=== PATIENT | female | born 1940 | race Caucasian/White ===

== ENCOUNTER 2017-03-27 06:50 | Inpatient (IN) | payer OTHER ==
[~2017-03-27] VITALS: Ht 154.9 cm; Wt 69.8 kg
[2017-03-27] VITALS (9 sets, daily range): BP systolic 100–201; BP diastolic 47–102
--- NOTE | 2017-03-27 07:14 | NUR ---
REPORT GIVEN TO AND CARE ENDORSED TO RAH GEORGE.
--- NOTE | 2017-03-27 07:30 | NUR ---
PATIENT PRESENTS TO ED WITH C/O ABDOMINAL PAIN. PAIN LEVEL OF 8/10. PATIENT HAS NAUSEA BUT NO VOMITING UPON ASSESSMENT. BOWEL SOUNDS HEARD ON ALL 4 QUADRANTS. PATIENT DENIES TRAUMA.
--- NOTE | 2017-03-27 07:42 | NUR ---
XRAY IN ROOM
[2017-03-27 07:49] LABS: BASOPHIL % 0.1 % (0-2)
[2017-03-27 07:52] LABS: PLATELET COUNT 430 x10^3mcL (130-400); RED CELL DISTRIBUTION WIDTH 17.2 % (11.5-14.5)
[2017-03-27 08:03] LABS: ovalocyte/elliptocyte 1+; rbc morphology (normal/abnorm) ABNORMAL (NORMAL)
[2017-03-27 08:09] LABS: T3 TOTAL 0.91 ng/mL
[2017-03-27 08:13] LABS: CALCIUM 9.2 mg/dL (8.5-10.1); CARBON DIOXIDE 24.7 mmol/L (21-32); CHLORIDE SERUM 96 mmol/L (98-107); CREATININE SERUM 0.9 mg/dL (0.6-1.0); GLUCOSE SERUM 387 mg/dL (74-106); POTASSIUM SERUM 3.7 mmol/L (3.5-5.1); SODIUM SERUM 133 mmol/L (136-145)
[2017-03-27 08:15] LABS: FREE T4 1.17 ng/dL (0.76-1.46); FREE THYROXINE INDEX 3.3 ug/dL (1.4-4.5); T4(THYROXINE) 9.3 ug/dL (4.7-13.3)
[2017-03-27 08:19] LABS: CK-MB 0.8 ng/mL (0-3.6)
[2017-03-27 08:25] LABS: ALBUMIN 3.9 g/dL (3.4-5.0); ALKALINE PHOSPHATASE 121 U/L (46-116); ALT/SGPT 19 U/L (14-59); AST/SGOT 16 U/L (15-37); BILIRUBIN TOTAL 0.53 mg/dL (0.20-1.00); TOTAL PROTEIN, SERUM 8.3 g/dL (6.4-8.2)
[2017-03-27 08:26] LABS: C REACTIVE PROTEIN < 0.2 mg/dL (<=0.9)
[2017-03-27 08:34] LABS: ERYTHROCYTE SED RATE 39 mm/hr (0-30)
--- NOTE | 2017-03-27 09:25 | NUR ---
BP 171/79. DR KHANNA AWARE AND OK TO CONTINUE WITH SECOND SALINE BOLUS
[2017-03-27] MEDS ORDERED: LANTUS SOLOS100 U/M1 SQ (10:18)
[2017-03-27] MEDS ORDERED: LISINOPRIL2.5 MG PO (10:19)
[2017-03-27] MEDS ORDERED: JANUVIA100 M1 PO (10:19)
--- NOTE | 2017-03-27 11:03 | NUR ---
REPORT GIVEN TO IRENE OVIEDO/RN.
--- NOTE | 2017-03-27 11:17 | NUR ---
PATIENT RECEIVED AT THIS TIME VIA [employer]. ACCOMPANIED BY NURSE AND DAUGHTER. AMBULATES WITH MINIMAL ASSISTANCE TO BED. PLACED ON TELE #41, HR 104. CERVICAL COLLAR IN PLACE FOR PAST SURGERY TO CERVICAL SPINE FOR FUSION OF C3-C5. IV TO RAC SALINE LOCKED, PLACED SCD'S, PLACED K PAD FOR ABDOMINAL PAIN TO LLQ. PATIENT STATES SHE WAS VOMITING ALL NIGHT WITH NO BLOOD IN EMESIS, BM FORMED WITH NO BLOOD. ALL SAFETY MEASURES IN PLACE AND REVIEWED, CALL LIGHT WITHIN REACH, WILL CONTINUE TO MONITOR.
[2017-03-27 12:57] LABS: CHOLESTEROL/HDL RATIO 3.4; MAGNESIUM 2.1 mg/dL (1.8-2.4); PHOSPHOROUS 3.8 mg/dL (2.5-4.9)
--- NOTE | 2017-03-27 13:09 | NUR ---
DR ACOSTA IN TO ASSESS PATIENT, PATIENT NAUSEOUS, DRY HEAVING. MEDICATED PRN ZOFRAN (SEE EMAR). ALL SAFETY MEASURES IN PLACE, WILL CONTINUE TO MONITOR.
--- NOTE | 2017-03-27 14:28 | NUR ---
DR ACOSTA IN TO ASSESS PATIENT AT THIS TIME. INFORMED BP 139/65, HR 102. PER DR ACOSTA CHECK BLOOD SUGAR PRIOR TO LEVEMIR (SEE EMAR). REGLAN GIVEN FOR CONTINUED NAUSEA, BLOOD TINGED EMESIS EXPELLED. DO ACOSTA VISUALLY INSPECTED. WILL CONTINUE TO MONITOR.
--- NOTE | 2017-03-27 15:29 | NUR ---
PATIENT RESTING, US TECH AT BEDSIDE.
--- NOTE | 2017-03-27 16:15 | NUR ---
DR ACOSTA MADE AWARE OF BP 105/54, PER MD WILL RETAKE BP, PATIENT ASYMPTOMATIC AND STATES SHE FEELS MUCH BETTER NOW. WILL CONTINUE TO MONITOR.
[2017-03-27 16:38] LABS: microscopic required? NO
[2017-03-27 16:57] LABS: urine erythrocyte NEGATIVE (NEGATIVE)
[2017-03-27 17:06] LABS: AMPHETAMINE QUAL UR NONE DETECTED (NEG <=1000)
--- NOTE | 2017-03-27 17:58 | NUR ---
DR ACOSTA MADE AWARE OF LACTIC ACID 3.2, PATIENT STILL NAUSEOUS, DRY HEAVING, ZOFRAN GIVEN (SEE EMAR), BP AT 1645 100/47, BP AT 1724 165/81. STATED HE WILL ENTER ORDER FOR NORVASC. WILL CONTINUE TO MONITOR.
--- NOTE | 2017-03-27 19:38 | NUR ---
BEDSIDE REPORT GIVEN TO NOC SHIFT NURSE AT THIS TIME, WILL ENDORSE CARE.
--- NOTE | 2017-03-27 19:50 | NUR ---
RECEIVED REPORT FROM DAY SHIFT RN. PT RESTING IN SEMIFOWLER'S POSITION. CERVICAL COLLAR AT BEDSIDE. PT STATES WANTED THEM OFF FOR NOW. NO SOB ON ROOM AIR. C/O NAUSEA, WILL MEDICATE PER ORDER. KPAD FOR ABD PAIN. IV ON RAC, NS INFUSING. SAFETY MEASURES IN PLACE. BED IN LOWEST POSITION. SIDE RAILS UP X2. DEMONSTRATED HOW TO USE THE CALL LIGHT FOR ASSISTANCE. CALL LIGHT WITHIN REACH.
[2017-03-28 04:44] VITALS: BP 96/48
[2017-03-28 06:22] LABS: CALCIUM 9.3 mg/dL (8.5-10.1); CARBON DIOXIDE 27.1 mmol/L (21-32); CHLORIDE SERUM 102 mmol/L (98-107); CREATININE SERUM 1.3 mg/dL (0.6-1.0); GLUCOSE SERUM 97 mg/dL (74-106); POTASSIUM SERUM 4.5 mmol/L (3.5-5.1); SODIUM SERUM 140 mmol/L (136-145)
[2017-03-28 06:32] LABS: BASOPHIL % 0.3 % (0-2)
[2017-03-28 06:40] LABS: PLATELET COUNT 423 x10^3mcL (130-400); RED CELL DISTRIBUTION WIDTH 17.3 % (11.5-14.5)
--- NOTE | 2017-03-28 06:42 | NUR ---
PT SLEPT AT LONG INTERVALS THROUGHOUT SHIFT. C/O NAUSEA, MEDICATED WITH REGLAN X1 AND ABD PAIN, MEDICATED WITH NORCO X1 LAST NIGHT. DENIES ANY N/V, ABD PAIN THIS MORNING. SAFETY MEASURES MAINTAINED. CALL LIGHT WITHIN REACH. WILL ENDORSE CONTINUITY OF CARE TO ONCOMING RN.
--- NOTE | 2017-03-28 07:39 | NUR ---
RECEIVED PT FROM NIGHT NURSE IN NO ACUTE DISTRESS. RESPIRATIONS EVEN AND UNLABORED ON RA. PT ASLEEP IN BED. K PAD IN PLACE TO ABDOMEN. D5 1/2 NS INFUSING AT 25ML/HR AT BEDSIDE. BED IN LOWEST POSITION. CALL LIGHT WITHIN REACH. WILL CONTINUE TO MONITOR.
[2017-03-28 09:38] VITALS: BP 126/59
--- NOTE | 2017-03-28 13:08 | NUR ---
PT RESTING IN BED IN NO ACUTE DISTRESS. RESPIRATIONS EVEN AND UNLABORED ON RA. AAOX4. TORADOL GIVEN FOR PAIN. KPAD IN PLACE TO ABD, SKIN INTACT. IVF INFUSING AT BEDSIDE. FAMILY AT BEDSIDE. BED IN LOWEST POSITION. CALL LIGHT WITHIN REACH. WILL CONTINUE TO MONITOR.
[2017-03-28 14:08] VITALS: BP 173/87
--- NOTE | 2017-03-28 14:35 | NUR ---
PT TAKEN DOWN TO GI LAB
[2017-03-28 16:17] VITALS: BP 110/57
--- NOTE | 2017-03-28 16:17 | NUR ---
PT RETURNED FROM GI LAB IN NO ACUTE DISTRESS. RESPIRATIONS EVEN AND UNLABORED ON RA. AAOX4. DENIES PAIN AT THIS TIME. BP 110/57 (70), HR 96, TEMP 98.1, SPO2 95%, RR 18. IVF INFUSING AT BEDSIDE. BED IN LOWEST POSITION. CALL LIGHT WITHIN REACH. WILL CONTINUE TO MONITOR.
--- NOTE | 2017-03-28 18:51 | NUR ---
PT ASLEEP IN BED IN NO ACUTE DISTRESS. RESPIRATIONS EVEN AND UNLABORED ON RA. IVF INFUSING AT BEDSIDE. BED IN LOWEST POSITION. CALL LIGHT WITHIN REACH. WILL ENDORSE CARE TO ONCOMING SHIFT.
--- NOTE | 2017-03-28 19:30 | NUR ---
RECEIVED PATIENT FROM AM RN. PATIENT QUIETLY RESTING IN BED. K-PAD TO BACK. TELE 41 SR. A/OX4 ABLE TO VERBALIZE NEEDS. DENIES ANY N/V, NO ABD PAIN. IVF INFUSING TO RAC AT 40ML/HR D5NS. CALL LIGHT WITHIN REACH.
--- NOTE | 2017-03-29 01:29 | NUR ---
PATIENT QUIETLY SLEEPING AT THIS TIME. EASILY AWAKEABLE. CONTINUES TO DENY ANY NAUSEA OR VOMITING. NO ABD PAIN VERBALIZED. CALL LIGHT WITHIN REACH.
--- NOTE | 2017-03-29 05:05 | NUR ---
PATIENT VERBALIZED PAIN TO STOMACH. ADMINISTERED PAIN MEDICATION.
[2017-03-29 05:27] VITALS: BP 155/75
--- NOTE | 2017-03-29 05:39 | NUR ---
PATIENT NOTED TO BE IN SEVERE PAIN. FACIAL GRIMACING AND CRYING NOTED. ADMINISTERED PAIN MEDICATION AND COACHED PATIENT TO TAKE DEEP BREATHS TO ASSIST WITH PAIN MANAGEMENT.
--- NOTE | 2017-03-29 06:13 | NUR ---
DR. STEWART IN TO SEE PATIENT. DR. STEWART AWARE THAT PATIENT IS HAVING SEVERE ABD PAIN. PER DR. STEWART, WILL PUT IN ORDERS FOR POSSIBLE DILAUDID.
[2017-03-29 06:14] LABS: BASOPHIL % 0.4 % (0-2); PLATELET COUNT 393 x10^3mcL (130-400)
[2017-03-29 06:16] LABS: RED CELL DISTRIBUTION WIDTH 17.6 % (11.5-14.5)
[2017-03-29 06:25] LABS: CALCIUM 8.8 mg/dL (8.5-10.1); CARBON DIOXIDE 23.4 mmol/L (21-32); CHLORIDE SERUM 101 mmol/L (98-107); CREATININE SERUM 0.9 mg/dL (0.6-1.0); GLUCOSE SERUM 214 mg/dL (74-106); POTASSIUM SERUM 3.8 mmol/L (3.5-5.1); SODIUM SERUM 134 mmol/L (136-145)
--- NOTE | 2017-03-29 07:21 | NUR ---
PAGED DR. STEWART REGARDING CLARIFICATION OF ORDER NEEDS FOR STO FOR STOOL FOR OCCULT BLOOD, WBC AND CULTURE. ALSO NEED CHANGE ORDERS FOR CHANGE OF FLUIDS TO NS INSTEAD OF D5NS. AWAITING RESPONSE.
--- NOTE | 2017-03-29 07:23 | NUR ---
ENDORSED CARE TO AM ARIEL OWUSU.
--- NOTE | 2017-03-29 07:44 | NUR ---
PATIENT IS CALM, SLIGHTLY IRRITATED DUE TO ADB PAIN REPORTING 8/10 PAIN IN LLQ, SPEAKS MOSTLY FRISIAN UNDERSTAND LITTLE TELUGU, TELEY MONITOR #41 SINUS RHYTHM, PULSES ARE STRONG IN ALL FOUR EXTREMETIES, CAPREFILL <3 SECONDS, NO EDEMA, LUNG SOUNDS CLEAR BILATERALLY, REPORTS NO NAUSEA, LAST BM: COUPLE DAYS AGO STATED BY THE PATIENT, LAST VOID: EARLY THIS MORNING, SKINI INTACT, RAC IV,
--- NOTE | 2017-03-29 08:42 | NUR ---
DR OSULLIVAN IN TO SEE PATIENT. MADE AWARE PATIENT NOT EATING AND IS EXPERIENCING PAIN NOT RELIEVED BY PAIN MEDICATIONS.
--- NOTE | 2017-03-29 09:03 | NUR ---
ASSISTED PATIENT TO BATHROOM, PATIENT BRUSHED TEETH, PATIENT ABLE TO VOID, NO BM, PATIENT BACK IN BED, SCD'S APPLIED, CALL LIGHT WITHIN REACH, FAMILY MEMBER AT BEDSIDE,
[2017-03-29 09:23] VITALS: BP 137/68
--- NOTE | 2017-03-29 10:02 | NUR ---
REPORTS PAIN CONTINUES. PAGED DR STEWART.
--- NOTE | 2017-03-29 10:03 | NUR ---
SPOKE WITH DR STEWART.
--- NOTE | 2017-03-29 11:22 | NUR ---
PATIENT RESTING IN BED, BED IN LOWEST POSTION, CALL LIGHT WITHIN REACH, SCD'S ON
--- NOTE | 2017-03-29 11:58 | NUR ---
PATIENT REPORTS HER PAIN IS BETTER, REPORTS 3/10
--- NOTE | 2017-03-29 13:00 | NUR ---
ATE ONLY A FEW BITES OF LUNCH
[2017-03-29 13:01] VITALS: BP 151/71
--- NOTE | 2017-03-29 14:04 | NUR ---
PATIENT ASLEEP, BED IN LOWEST POSITION, CALL LIGHT WITHIN REACH, SCD'S ON
--- NOTE | 2017-03-29 14:35 | NUR ---
PATIENT REPORTED 2/10 PAIN
--- NOTE | 2017-03-29 15:53 | NUR ---
PATIENT RESTING IN BED, PATIENT REPORTED "DOING MUCH BETTER" AND "NO PAIN", CALL LIGHT WITHIN REACH, SCD'S ON ,
[2017-03-29 16:11] VITALS: BP 106/56
--- NOTE | 2017-03-29 17:35 | NUR ---
PATIENT GOT UP TO VOID, SHE IS BACK IN BED, EATING AND WATCHING TV, BED IN LOWEST POSTION, SCD'S APPLIED, CALL LIGHT WITHIN REACH.
--- NOTE | 2017-03-29 18:03 | NUR ---
PATIENT RESTING IN BED, ATE 100% OF DINNER
--- NOTE | 2017-03-29 18:12 | NUR ---
PATIENT REPORTED NAUSEA AFTER DINNER, TREATED WITH 4MG ZOFRAN
--- NOTE | 2017-03-29 18:38 | NUR ---
CALLED, BREATHLESS AND WRITHING IN PAIN AND NAUSEA. PAGED DR CRANE.
--- NOTE | 2017-03-29 19:30 | NUR ---
RECEIVED PT LAYING IN BED IN NO ACUTE DISTRESS AT THIS TIME. PT C/O ABDOMINAL PAIN AT THIS TIME, WILL MEDICATE WITH ONE TIME DOSE OF ORDERED GI COCKTAIL. POOR APPETITE NOTED, PT DID NOT EAT BREAKFAST OR LUNCH. ABD IS ROUND AND SOFT WITH ACTIVE BOWEL SOUNDS. PT DENIES N/V. LAST BM WAS 03/27/17, NORMAL AND FORMED. PT IS A/O AND ABLE TO MAKE NEEDS KNOWN. TELE #41, NSR. PULSES PRESENT AND NO EDEMA NOTED. SCD IN PLACE. BREATHING ON RA WITH LUNG SOUNDS CTA. BREATHING EVEN AND UNLABORED. PT DENIES SOB OR DYSPNEA. PT IT ABLE TO FREELY VOID URINE. BRP WITH ASSITANCE. GENERALIZED WEAKNESS, KPAD TO ABDOMEN IN PLACE TO HELP WITH PAIN RELIEF. SKIN IS CDI, SCAR NOTED TO BACK OF HEAD, HEALING, FRANCINE. IV FLUIDS INFUSING PER DOCTOR'S ORDERS. IV SITE IS DRY, PATENT, AND INTACT. ROOM FREE OF SAFETY HAZARDS. BED IN LOWEST POSITION WITH SIDE RAILS UP X2. CALL LIGHT WITHIN REACH. WILL CONTINUE TO MONITOR
--- NOTE | 2017-03-29 19:45 | NUR ---
ONE TIME DOSE OF GI COCKTAIL GIVEN TO PT. C/O ABDOMINAL PAIN AND STATES THAT GI COCKTAIL HELPED LAST TIME. STATES DILAUDID PO DID NOT HELP. PT IN NO ACUTE DISTRESS AT THIS TIME. CALL LIGHT WITHIN REACH. WILL CONTINUE TO MONITOR
--- NOTE | 2017-03-29 20:45 | NUR ---
PT ABLE TO HAVE A BM. BROWN IN COLOR. CONSISTANCY OF MUCOUS. STOOL SAMPLES OBTAINED PER DOCTOR'S ORDERS AND SENT DOWN TO LAB. WILL AWAIT RESULTS. PT ASSISTED BACK TO BED WITHOUT ISSUE. PT REFUSES KPAD TO ABD AT THIS TIME STATING SHE WILL USE IT AGAIN LATER. NO ACUTE DISTRESS NOTED. CALL LIGHT WITHIN REACH. WILL CONTINUE TO MONITOR
[2017-03-29 21:03] VITALS: BP 125/61
--- NOTE | 2017-03-30 01:05 | NUR ---
PT IS LAYING IN BED WITH EYES CLOSED, SLEEPING. NO APPARENT DISTRESS NOTED. COMFORT MEASURES IN PLACE. CALL LIGHT WITHIN REACH. WILL CONTINUE TO MONITOR
--- NOTE | 2017-03-30 02:41 | NUR ---
PT STATED SHE WAS FEELING HOT AND SWEATY, STATING SHE FELT LIKE HER BLOOD SUGAR WAS LOW. ACCUCHECK REVEALED BBS 54. RECHECKED, 58. PT GIVEN D50 IVP[address] DR[address] CRANE MADE AWARE. PT STILL REQUESTED ORANGE JUICE, PT WAS GIVEN AND SHE DRANK IT. AFTER ADMIN OF D50 PT STATED SHE FEELS A LOT BETTER. WILL RECHECK BBS AGAIN IN 30 MINUTES PER PROTOCOL. PT IN NO ACUTE DISTRESS AT THIS TIME. COMFORT MEASURES IN PLACE AND ALL NEEDS ASSESSED. CALL LIGHT WITHIN REACH. WILL CONTINUE TO MONITOR
--- NOTE | 2017-03-30 03:08 | NUR ---
RECHECKED PT'S BBS, 198. PT STATES SHE IS HUNGRY. KARSON PROVIDED FOR PT TO SNACK. NO ACUTE DISTRESS NOTED. CALL LIGHT WITHIN REACH. WILL CONTINUE TO MONITOR
[2017-03-30 05:13] VITALS: BP 134/60
--- NOTE | 2017-03-30 05:14 | NUR ---
NO SIGNIFICANT CHANGES TO REPORT. PT COMPLIED WITH NURSING CARE THROUGHOUT THE SHIFT WITH NO ACUTE EVERNTS OVERNIGHT. PT IS STABLE AND DOES NOT APPEAR TO BE IN ANY ACUTE DISTRESS. PT DENIES N/V AT THIS TIME. COMFORT AND SAFETY MEASURES MAINTAINED THROUGH THE SHIFT. ALL NEEDS ASSESSED. IV FLUIDS REMAIN INFUSING PER DOCTOR'S ORDERS. IV SITE IS DRY, PATENT, AND INTACT. NO SWELLING OR REDNESS NOTED. CALL LIGHT WITHIN REACH. WILL ENDORSE TO DAY NURSE FOR CONTINUITY OF CARE
[2017-03-30 06:26] LABS: CALCIUM 8.2 mg/dL (8.5-10.1); CARBON DIOXIDE 28.7 mmol/L (21-32); CHLORIDE SERUM 102 mmol/L (98-107); CREATININE SERUM 0.7 mg/dL (0.6-1.0); GLUCOSE SERUM 312 mg/dL (74-106); POTASSIUM SERUM 3.8 mmol/L (3.5-5.1); SODIUM SERUM 137 mmol/L (136-145)
[2017-03-30 06:36] LABS: BASOPHIL % 0.4 % (0-2); PLATELET COUNT 302 x10^3mcL (130-400)
[2017-03-30 07:11] LABS: RED CELL DISTRIBUTION WIDTH 17.7 % (11.5-14.5)
--- NOTE | 2017-03-30 07:29 | NUR ---
RECEIVED PATIENT AWAKE/ALERT IN BED NO DISTRESS NOTED, DENIES PAIN AT THIS TIME. VISTA COLLAR TO NECK NOTED, TELE # 41 NOTED. IV TO RAC INTACT AND INFUSING WELL. SCD'S IN PLACE. ASSIST PATIENT SITTING UP FOR BREAKFAST. NEEDS ANTICIPATED. CALL LIGHT WITHIN REACH.
--- NOTE | 2017-03-30 08:24 | NUR ---
PATIENT LAYING IN BED NO DISTRESS NOTED, ZOFRAN 4 MG IVP GIVEN FOR NAUSEA. PROTONIX 40MG IVP GIVEN ORDERED. NEEDS ANTTICIPATED.
[2017-03-30 09:01] VITALS: BP 115/60
[2017-03-30 09:12] VITALS: BP 115/60
--- NOTE | 2017-03-30 09:17 | NUR ---
PATIENT RESTING IN BED DR. STEWART AT BEDSIDE DISCUSS POC WITH PATIENT, WILL ORDER GI COCKTAIL FOR ACID; PLAN DISCHARGE TODAY F/U OUTPATIENT GI SPECIALIST FOR HIATAL HERNIA. NO C/O PAIN AT THIS TIME; ALL DUE MEDS GIVEN NAUSEA SUBSIDED. NEEDS ANTICIPATED. CALL LIGHT WITHIN REACH.
[2017-03-30] MEDS ORDERED: LIPI20 PO (10:07)
[2017-03-30] MEDS ORDERED: NOR5 PO (10:08)
[2017-03-30] MEDS ORDERED: ZES20 PO (10:09)
[2017-03-30] MEDS ORDERED: BAY PO (10:09)
[2017-03-30] MEDS ORDERED: CARL PO (10:13)
[2017-03-30] MEDS ORDERED: THERA TABS1 TAB PO (10:14)
[2017-03-30] MEDS ORDERED: PROTONIX TR40 M1 PO (10:14)
[2017-03-30] MEDS ORDERED: REG5 PO (10:16)
--- NOTE | 2017-03-30 11:32 | NUR ---
PATIENT RESTING IN BED NO COMPLAINT, DENIES PAIN, GI COCKTAIL 50ML PO GIVEN ORDERED; DUE MEDS GIVEN. PER RESOURCING CONSULTANT PATIENT HAS EPISODE PVC'S CONT TO MONITOR.
[2017-03-30 13:35] VITALS: BP 146/60
--- NOTE | 2017-03-30 13:39 | NUR ---
DR. STEWART PAGE AT THIS TIME; DTR DINA AT BEDSIDE WAS UPDATED PATIENT'S CONDITION AND PATIENT REPORT DON'T FEEL GOOD, STILL HAVE NAUSEA.
--- NOTE | 2017-03-30 14:40 | NUR ---
DR. OSULLIVAN AT BEDSIDE SPEAKING WITH PATIENT AND DTR ODILY RE PATIENT'S CONDITION; GIVE INSTRUCTION ON DIET AND ANTI ACID MEDS. PER DR. OSULLIVAN PATIENT OKAY TO GO HOME AND CONTINUE ON REGLAN FOR NAUSEA AND PROTONIX; STOP ASA. IV AND TELE BOX DC'D; INFORM PATIENT GET DRESS WILL BE BACK WITH CARY GANNON.
--- NOTE | 2017-03-30 15:02 | NUR ---
DISCHARGE INSTRUCTION AND PRESCRIPTION EXPLAINED TO DTR AND PATIENT; PATIENT VERBALIZE WILL F/U WITH DR. WOOD ON 04/01/17 @ 3PM AND DR. BURKETT 04/25/17 @ 3PM. MARIELA RUSS PAT TO ASSIST WHEEL PATIENT OUT AT THIS TIME.
[2017-04-02] MEDS ORDERED: BACTRIM DS1 TAB PO (11:39)
== END 2017-03-30 15:09 | disposition home or self-care (01) | DRG 371 ==
LOC: ED 06:50 → DU 10:14
PROVIDERS: Family Medicine; Internal Medicine Gastroenterology; Specialist; ADMIT Family Medicine
PROC: 0DB68ZX Excision of Stomach, Via Natural or Artificial Opening Endoscopic, Diagnostic (ICD-10-PCS; principal; 2017-03-28 14:00)
PROC: 0W3P8ZZ Control Bleeding in Gastrointestinal Tract, Via Natural or Artificial Opening Endoscopic (ICD-10-PCS; 2017-03-28 14:00)
DX: A04.8 Other specified bacterial intestinal infections (principal); K25.4 Chronic or unspecified gastric ulcer with hemorrhage; N17.0 Acute kidney failure with tubular necrosis; E87.1 Hypo-osmolality and hyponatremia; E11.65 Type 2 diabetes mellitus with hyperglycemia; K44.9 Diaphragmatic hernia without obstruction or gangrene; I16.0 Hypertensive urgency; E11.51 Type 2 diabetes mellitus with diabetic peripheral angiopathy without gangrene; E86.0 Dehydration; D47.3 Essential (hemorrhagic) thrombocythemia; I10 Essential (primary) hypertension; E78.5 Hyperlipidemia, unspecified; Z68.29 Body mass index [BMI] 29.0-29.9, adult; Z79.4 Long term (current) use of insulin; Z98.1 Arthrodesis status; Z86.73 Personal history of transient ischemic attack (TIA), and cerebral infarction without residual deficits; Z87.11 Personal history of peptic ulcer disease
CPT/HCPCS: 36600; 43235; 82962; 83880; 84439; 87046; 87046-59; C9113; J0360; J1200; J1610; J1885; J2250; J2310; J2405; J2543; J2765; J3010; J3490; J7030; J7040; J7042; Q0092

== ENCOUNTER 2017-04-03 14:19 | Emergency (ER) | payer OTHER ==
[~2017-04-03] VITALS: Ht 160 cm; Wt 66.7 kg
[~2017-04-03 14:19] MED LIST: BACTRIM DS1 TAB PO; BAY PO; CARL PO; JANUVIA100 M1 PO; LANTUS SOLOS100 U/M1 SQ; LIPI20 PO; LISINOPRIL2.5 MG PO; NOR5 PO; PROTONIX TR40 M1 PO; REG5 PO; THERA TABS1 TAB PO; ZES20 PO
[2017-04-03 14:21] VITALS: Ht 160 cm; Wt 66.7 kg
[2017-04-03 16:22] LABS: CALCIUM 9.2 mg/dL (8.5-10.1); CHLORIDE SERUM 97 mmol/L (98-107); CREATININE SERUM 0.8 mg/dL (0.6-1.0); GLUCOSE SERUM 291 mg/dL (74-106); POTASSIUM SERUM 4.1 mmol/L (3.5-5.1); SODIUM SERUM 136 mmol/L (136-145)
[2017-04-03 16:28] LABS: ALBUMIN 3.7 g/dL (3.4-5.0); ALKALINE PHOSPHATASE 122 U/L (46-116); ALT/SGPT 24 U/L (14-59); AST/SGOT 18 U/L (15-37); BILIRUBIN TOTAL 0.45 mg/dL (0.20-1.00); LIPASE 162 IU/L (73-393); TOTAL PROTEIN, SERUM 7.9 g/dL (6.4-8.2)
[2017-04-03 18:20] VITALS: BP 132/68
[2017-04-03 18:47] LABS: PLATELET COUNT 529 x10^3mcL (130-400)
== END 2017-04-03 18:26 | disposition home or self-care (01) ==
LOC: ED 14:19
PROVIDERS: Emergency Medicine
DX: T37.0X5A Adverse effect of sulfonamides, initial encounter (principal); I10 Essential (primary) hypertension; Z86.73 Personal history of transient ischemic attack (TIA), and cerebral infarction without residual deficits; Y92.89 Other specified places as the place of occurrence of the external cause
CPT/HCPCS: 83880; J2405; J3010; J7030

== ENCOUNTER 2017-05-03 06:58 | Inpatient (IN) | payer OTHER ==
[~2017-05-03] VITALS: Ht 154.9 cm; Wt 60.5 kg
[2017-05-03 07:57] LABS: BASOPHIL % 0 % (0-2); PLATELET COUNT 454 x10^3mcL (130-400); RED CELL DISTRIBUTION WIDTH 17.4 % (11.5-14.5)
[2017-05-03 07:58] LABS: rbc morphology (normal/abnorm) ABNORMAL (NORMAL)
[2017-05-03 08:05] LABS: CALCIUM 9.3 mg/dL (8.5-10.1); CARBON DIOXIDE 23.2 mmol/L (21-32); CHLORIDE SERUM 95 mmol/L (98-107); CREATININE SERUM 0.9 mg/dL (0.6-1.0); GLUCOSE SERUM 398 mg/dL (74-106); SODIUM SERUM 133 mmol/L (136-145)
[2017-05-03] MEDS ORDERED: CARAFATE1 GM/10 ML PO (08:10)
[2017-05-03] MEDS ORDERED: SOLIQUA SC (08:10)
[2017-05-03] MEDS ORDERED: METOCLOPRAMIDE H5 M1 PO (08:11)
[2017-05-03] MEDS ORDERED: PANTOPRAZOLE SO40 M1 PO (08:11)
[2017-05-03] MEDS ORDERED: NOR5 PO (08:11)
[2017-05-03 08:12] LABS: ALBUMIN 3.9 g/dL (3.4-5.0); ALKALINE PHOSPHATASE 97 U/L (46-116); ALT/SGPT 21 U/L (14-59); AMYLASE 33 U/L (25-115); AST/SGOT 14 U/L (15-37); BILIRUBIN TOTAL 0.76 mg/dL (0.20-1.00); LIPASE 83 IU/L (73-393); TOTAL PROTEIN, SERUM 7.8 g/dL (6.4-8.2)
[2017-05-03] MEDS ORDERED: PRINIVIL20 MG PO (08:12)
[2017-05-03] MEDS ORDERED: BENAZEPRIL HYDR20 M1 PO (08:12)
[2017-05-03] MEDS ORDERED: LIPI20 PO (08:12)
[2017-05-03 10:17] LABS: CHOLESTEROL/HDL RATIO 2.6; MAGNESIUM 1.8 mg/dL (1.8-2.4)
[2017-05-03 10:21] LABS: T3 TOTAL 0.97 ng/mL
[2017-05-03 10:26] LABS: FREE T4 1.39 ng/dL (0.76-1.46); FREE THYROXINE INDEX 3.1 ug/dL (1.4-4.5); T4(THYROXINE) 9.2 ug/dL (4.7-13.3)
[2017-05-03 12:17] LABS: IRON 19 ug/dL (50-170); TOTAL IRON BINDING CAPACITY 509 ug/dL (250-450)
[2017-05-03 12:22] LABS: RED BLOOD CELLS 4.58 M/mm3 (4.10-5.10)
[2017-05-03 12:26] VITALS: BP 179/91
[2017-05-03 13:01] VITALS: BP 184/89
[2017-05-03 14:49] LABS: microscopic required? NO
[2017-05-03 14:56] LABS: urine erythrocyte NEGATIVE (NEGATIVE)
[2017-05-03 14:58] VITALS: BP 192/106
[2017-05-03 15:07] LABS: AMPHETAMINE QUAL UR NONE DETECTED (NEG <=1000)
[2017-05-03 18:10] VITALS: BP 96/52
[2017-05-03 20:18] VITALS: BP 100/52
[2017-05-04 05:08] VITALS: BP 98/53
[2017-05-04 07:08] LABS: BASOPHIL % 0.3 % (0-2)
[2017-05-04 07:18] LABS: PLATELET COUNT 401 x10^3mcL (130-400); RED CELL DISTRIBUTION WIDTH 17.1 % (11.5-14.5)
[2017-05-04 07:19] LABS: rbc morphology (normal/abnorm) ABNORMAL (NORMAL)
[2017-05-04 08:10] VITALS: BP 113/58
[2017-05-04 08:57] LABS: CALCIUM 8.4 mg/dL (8.5-10.1); CARBON DIOXIDE 25.6 mmol/L (21-32); CHLORIDE SERUM 101 mmol/L (98-107); CREATININE SERUM 0.8 mg/dL (0.6-1.0); GLUCOSE SERUM 190 mg/dL (74-106); POTASSIUM SERUM 3.6 mmol/L (3.5-5.1); SODIUM SERUM 137 mmol/L (136-145)
[2017-05-04 14:09] VITALS: BP 111/61
[2017-05-04 21:00] VITALS: BP 92/43
[2017-05-04 23:57] VITALS: Ht 154.9 cm; Wt 60.5 kg
[2017-05-05 05:16] VITALS: BP 110/56
[2017-05-05 06:42] LABS: BASOPHIL % 0.3 % (0-2); PLATELET COUNT 362 x10^3mcL (130-400)
[2017-05-05 06:47] LABS: RED CELL DISTRIBUTION WIDTH 17.4 % (11.5-14.5)
[2017-05-05 06:48] LABS: rbc morphology (normal/abnorm) ABNORMAL (NORMAL)
[2017-05-05 07:08] LABS: CALCIUM 7.8 mg/dL (8.5-10.1); CARBON DIOXIDE 26.8 mmol/L (21-32); CHLORIDE SERUM 104 mmol/L (98-107); CREATININE SERUM 0.8 mg/dL (0.6-1.0); GLUCOSE SERUM 117 mg/dL (74-106); POTASSIUM SERUM 3.8 mmol/L (3.5-5.1); SODIUM SERUM 139 mmol/L (136-145)
[2017-05-05 09:09] VITALS: BP 104/48
[2017-05-05] MEDS ORDERED: LANSOPRAZOLE30 M2 PO ×2 (10:03→19:18)
[2017-05-05] MEDS ORDERED: FERROUS SULFAT325 M2 PO ×2 (10:40→19:18)
[2017-05-05] MEDS ORDERED: PHARMASSURE VI500 MG PO ×2 (10:40→19:18)
[2017-05-05 13:42] VITALS: BP 144/69
[2017-05-05] MEDS ORDERED: ECO81 PO ×2 (13:57→19:18)
[2017-05-05] MEDS ORDERED: LIPI20 PO ×2 (13:57→19:18)
[2017-05-05 17:16] VITALS: BP 133/62
== END 2017-05-05 20:03 | disposition home or self-care (01) | DRG 381 ==
LOC: ED 06:58 → DU 09:18 → EDBEDREQ 09:26 → DU 10:18
PROVIDERS: Emergency Medicine; Family Medicine Sports Medicine
DX: K28.9 Gastrojejunal ulcer, unspecified as acute or chronic, without hemorrhage or perforation (principal); D68.69 Other thrombophilia; E87.1 Hypo-osmolality and hyponatremia; E11.43 Type 2 diabetes mellitus with diabetic autonomic (poly)neuropathy; K31.84 Gastroparesis; K44.9 Diaphragmatic hernia without obstruction or gangrene; D50.9 Iron deficiency anemia, unspecified; E11.65 Type 2 diabetes mellitus with hyperglycemia; E11.51 Type 2 diabetes mellitus with diabetic peripheral angiopathy without gangrene; I10 Essential (primary) hypertension; E78.5 Hyperlipidemia, unspecified; M47.896 Other spondylosis, lumbar region; Z68.25 Body mass index [BMI] 25.0-25.9, adult; Z98.1 Arthrodesis status; Z98.84 Bariatric surgery status
CPT/HCPCS: 82962; 83880; 84439; J1200; J1610; J1815; J1885; J2060; J2250; J2270; J2310; J2405; J2916; J3010; J3490; J7030; J8597; Q0092; Q9967

== ENCOUNTER 2018-01-31 15:02 | Inpatient (IN) | payer OTHER ==
[~2018-01-31] VITALS: Ht 154.9 cm; Wt 72.6 kg
[~2018-01-31 15:02] MED LIST changes: +BENAZEPRIL HYDR20 M1 PO; +CARAFATE1 GM/10 ML PO; +ECO81 PO; +FERROUS SULFAT325 M2 PO; +LANSOPRAZOLE30 M2 PO; +METOCLOPRAMIDE H5 M1 PO; +PANTOPRAZOLE SO40 M1 PO; +PHARMASSURE VI500 MG PO; +PRINIVIL20 MG PO; +SOLIQUA SC
[2018-01-31 15:13] VITALS: Ht 154.9 cm; Wt 72.6 kg
[2018-01-31 16:55] LABS: microscopic required? NO
[2018-01-31 17:06] LABS: urine erythrocyte NEGATIVE (NEGATIVE)
[2018-01-31 17:39] LABS: CALCIUM 8.3 mg/dL (8.5-10.1); CARBON DIOXIDE 30.3 mmol/L (21-32); CHLORIDE SERUM 101 mmol/L (98-107); CREATININE SERUM 0.8 mg/dL (0.6-1.0); GLUCOSE SERUM 279 mg/dL (74-106); POTASSIUM SERUM 4.3 mmol/L (3.5-5.1); SODIUM SERUM 135 mmol/L (136-145)
[2018-01-31 17:46] LABS: ALKALINE PHOSPHATASE 118 U/L (46-116); ALT/SGPT 23 U/L (14-59); AST/SGOT 15 U/L (15-37); BILIRUBIN TOTAL 0.2 mg/dL (0.20-1.00)
[2018-01-31 17:47] LABS: ALBUMIN 3.3 g/dL (3.4-5.0)
[2018-01-31 17:50] LABS: BASOPHIL % 0.3 % (0-2)
[2018-01-31 17:51] LABS: PLATELET COUNT 405 x10^3mcL (130-400); RED CELL DISTRIBUTION WIDTH 18.3 % (11.5-14.5)
[2018-01-31] MEDS ORDERED: INSULIN (18:40)
[2018-01-31 19:50] VITALS: BP 158/75
[2018-01-31 19:56] LABS: CHOLESTEROL/HDL RATIO 3.6; MAGNESIUM 1.9 mg/dL (1.8-2.4)
[2018-01-31 20:05] LABS: FREE T4 1.04 ng/dL (0.76-1.46); FREE THYROXINE INDEX 2.5 ug/dL (1.4-4.5)
[2018-01-31 20:06] LABS: T3 TOTAL 1.01 ng/mL
[2018-02-01 04:51] VITALS: BP 143/64
[2018-02-01 06:04] LABS: TOTAL IRON BINDING CAPACITY 439 ug/dL (250-450)
[2018-02-01 06:07] LABS: BASOPHIL % 0.5 % (0-2); PLATELET COUNT 364 x10^3mcL (130-400)
[2018-02-01 06:08] LABS: IRON 31 ug/dL (50-170)
[2018-02-01 06:10] LABS: CALCIUM 8.1 mg/dL (8.5-10.1); CARBON DIOXIDE 28.8 mmol/L (21-32); CHLORIDE SERUM 103 mmol/L (98-107); CREATININE SERUM 0.7 mg/dL (0.6-1.0); GLUCOSE SERUM 189 mg/dL (74-106); MAGNESIUM 2.1 mg/dL (1.8-2.4); PHOSPHOROUS 3.8 mg/dL (2.5-4.9); SODIUM SERUM 138 mmol/L (136-145)
[2018-02-01 06:11] LABS: RED CELL DISTRIBUTION WIDTH 18.3 % (11.5-14.5)
[2018-02-01 10:11] VITALS: BP 116/59
[2018-02-01 14:04] VITALS: BP 139/70
[2018-02-01 17:40] VITALS: BP 115/63
[2018-02-01 19:52] VITALS: BP 127/62
[2018-02-02 05:29] VITALS: BP 123/56
[2018-02-02 06:54] LABS: BASOPHIL % 0.4 % (0-2); PLATELET COUNT 351 x10^3mcL (130-400)
[2018-02-02 07:01] LABS: CALCIUM 8.2 mg/dL (8.5-10.1); CARBON DIOXIDE 30.1 mmol/L (21-32); CHLORIDE SERUM 104 mmol/L (98-107); CREATININE SERUM 0.7 mg/dL (0.6-1.0); GLUCOSE SERUM 195 mg/dL (74-106); MAGNESIUM 2.1 mg/dL (1.8-2.4); PHOSPHOROUS 3.3 mg/dL (2.5-4.9); POTASSIUM SERUM 4.6 mmol/L (3.5-5.1); SODIUM SERUM 136 mmol/L (136-145)
[2018-02-02 07:49] LABS: RED CELL DISTRIBUTION WIDTH 18.2 % (11.5-14.5)
[2018-02-02 09:16] VITALS: BP 134/62
[2018-02-02 12:54] VITALS: BP 96/51
[2018-02-02 16:12] VITALS: BP 96/51
[2018-02-02 17:06] VITALS: BP 103/53
== END 2018-02-02 18:11 | disposition home or self-care (01) | DRG 74 ==
LOC: ED 15:02 → DU 18:15
PROVIDERS: Emergency Medicine; Internal Medicine
DX: G90.8 Other disorders of autonomic nervous system (principal); E44.1 Mild protein-calorie malnutrition; I16.0 Hypertensive urgency; E11.65 Type 2 diabetes mellitus with hyperglycemia; E78.5 Hyperlipidemia, unspecified; D50.9 Iron deficiency anemia, unspecified; Z98.1 Arthrodesis status; Z68.28 Body mass index [BMI] 28.0-28.9, adult; Z79.82 Long term (current) use of aspirin; Z79.4 Long term (current) use of insulin; Z86.73 Personal history of transient ischemic attack (TIA), and cerebral infarction without residual deficits
CPT/HCPCS: 82962; 83880; 84439; 97110-GP; J2405; J7030; J8597; Q0092

== ENCOUNTER 2018-07-01 13:10 | Emergency (ER) | payer OTHER ==
[~2018-07-01] VITALS: Ht 157.5 cm; Wt 69.9 kg
[~2018-07-01 13:10] MED LIST changes: +INSULIN
[2018-07-01 15:09] LABS: BASOPHIL % 0.3 % (0-2)
[2018-07-01 15:10] LABS: PLATELET COUNT 489 x10^3mcL (130-400)
[2018-07-01 15:13] LABS: CALCIUM 8.6 mg/dL (8.5-10.1); CARBON DIOXIDE 30.9 mmol/L (21-32); CHLORIDE SERUM 100 mmol/L (98-107); CREATININE SERUM 0.8 mg/dL (0.6-1.0); GLUCOSE SERUM 118 mg/dL (74-106); POTASSIUM SERUM 3.6 mmol/L (3.5-5.1); SODIUM SERUM 141 mmol/L (136-145)
[2018-07-01 15:18] LABS: ALBUMIN 3.6 g/dL (3.4-5.0); ALKALINE PHOSPHATASE 121 U/L (46-116); ALT/SGPT 28 U/L (14-59); AST/SGOT 27 U/L (15-37); BILIRUBIN TOTAL 0.2 mg/dL (0.20-1.00); TOTAL PROTEIN, SERUM 7.8 g/dL (6.4-8.2)
[2018-07-01 17:00] LABS: UA SPECIFIC GRAVITY 1.015 (1.005-1.035); microscopic required? YES; urine erythrocyte NEGATIVE (NEGATIVE)
[2018-07-01 17:15] VITALS: BP 155/76
== END 2018-07-01 17:15 | disposition home or self-care (01) ==
LOC: ED 13:10
PROVIDERS: Emergency Medicine
DX: R19.7 Diarrhea, unspecified (principal); I10 Essential (primary) hypertension; E11.9 Type 2 diabetes mellitus without complications; Z86.73 Personal history of transient ischemic attack (TIA), and cerebral infarction without residual deficits
CPT/HCPCS: 87046; 87046-59; J7030

== ENCOUNTER 2018-07-18 09:45 | Emergency (ER) | payer OTHER, BC ==
[~2018-07-18] VITALS: Ht 157.5 cm; Wt 68.0 kg
[2018-07-18 09:55] VITALS: Ht 157.5 cm; Wt 68.0 kg
[2018-07-18 10:54] LABS: BASOPHIL % 0.4 % (0-2); PLATELET COUNT 367 x10^3mcL (130-400); RED CELL DISTRIBUTION WIDTH 16.9 % (11.5-14.5)
[2018-07-18 11:08] LABS: ALKALINE PHOSPHATASE 88 U/L (46-116); ALT/SGPT 20 U/L (14-59); AST/SGOT 17 U/L (15-37); BILIRUBIN TOTAL 0.34 mg/dL (0.20-1.00); CALCIUM 8.4 mg/dL (8.5-10.1); CARBON DIOXIDE 29.1 mmol/L (21-32); CHLORIDE SERUM 100 mmol/L (98-107); CREATININE SERUM 0.8 mg/dL (0.6-1.0); LIPASE 93 IU/L (73-393); POTASSIUM SERUM 3.7 mmol/L (3.5-5.1); SODIUM SERUM 135 mmol/L (136-145); TOTAL PROTEIN, SERUM 6.7 g/dL (6.4-8.2)
[2018-07-18 11:26] LABS: ALBUMIN 3.2 g/dL (3.4-5.0)
[2018-07-18 11:33] LABS: GLUCOSE SERUM 179 mg/dL (74-106)
[2018-07-18 12:29] LABS: UA SPECIFIC GRAVITY <=1.005 (1.005-1.035); microscopic required? YES; urine erythrocyte NEGATIVE (NEGATIVE)
[2018-07-18 13:41] VITALS: BP 140/80
== END 2018-07-18 13:41 | disposition home or self-care (01) ==
LOC: ED 09:45
PROVIDERS: Emergency Medicine
DX: K29.70 Gastritis, unspecified, without bleeding (principal); I10 Essential (primary) hypertension; E11.9 Type 2 diabetes mellitus without complications; Z86.73 Personal history of transient ischemic attack (TIA), and cerebral infarction without residual deficits; Z98.890 Other specified postprocedural states
CPT/HCPCS: J2270; J2405; J3490; J7030

== ENCOUNTER 2018-11-03 19:26 | Emergency (ER) | payer OTHER, BC ==
[~2018-11-03] VITALS: Ht 154.9 cm; Wt 67.6 kg
[2018-11-03 19:40] VITALS: Ht 154.9 cm; Wt 67.6 kg
[2018-11-03 21:13] LABS: BASOPHIL % 0.3 % (0-2)
[2018-11-03 21:16] LABS: PLATELET COUNT 416 x10^3mcL (130-400); RED CELL DISTRIBUTION WIDTH 17.8 % (11.5-14.5)
[2018-11-03 21:23] LABS: CALCIUM 9.2 mg/dL (8.5-10.1); CARBON DIOXIDE 24.2 mmol/L (21-32); CHLORIDE SERUM 104 mmol/L (98-107); CREATININE SERUM 1.3 mg/dL (0.6-1.0); GLUCOSE SERUM 204 mg/dL (74-106); POTASSIUM SERUM 4.4 mmol/L (3.5-5.1); SODIUM SERUM 139 mmol/L (136-145)
[2018-11-03 21:29] LABS: ALBUMIN 3.5 g/dL (3.4-5.0); ALKALINE PHOSPHATASE 91 U/L (46-116); ALT/SGPT 27 U/L (14-59); AST/SGOT 22 U/L (15-37); BILIRUBIN TOTAL 0.27 mg/dL (0.20-1.00); LIPASE 191 IU/L (73-393); TOTAL PROTEIN, SERUM 7.4 g/dL (6.4-8.2)
[2018-11-03 21:40] LABS: UA SPECIFIC GRAVITY 1.025 (1.005-1.035); microscopic required? YES; urine erythrocyte NEGATIVE (NEGATIVE)
[2018-11-03 23:09] VITALS: BP 118/73
== END 2018-11-03 23:09 | disposition home or self-care (01) ==
LOC: ED 19:26
PROVIDERS: Emergency Medicine
DX: R10.13 Epigastric pain (principal); R53.1 Weakness; R11.10 Vomiting, unspecified; E11.65 Type 2 diabetes mellitus with hyperglycemia; I10 Essential (primary) hypertension; Z98.890 Other specified postprocedural states; Z86.73 Personal history of transient ischemic attack (TIA), and cerebral infarction without residual deficits
CPT/HCPCS: J2060; J2765; J3490; J7030